=== PATIENT | male | born 1950 | race Hispanic/Latino ===

== ENCOUNTER 2016-05-28 10:38 | Outpatient (CLI) | payer MEDICARE, BC ==
[2016-05-28 11:55] LABS: #Basophils 0.1 thou/uL (0.0-0.2); #Eosinphils 0.2 thou/uL (0.0-0.7); #Lymphocytes 2.3 thou/uL (1.20-3.40); #Monocytes 0.8 thou/uL (0.11-0.59); #Neutrophils 3.1 thou/uL (1.40-6.50); %Basophils 1.1 % (0.0-1.0); %Monocytes 12.4 % (0.0-10.0); Hematocrit 45.8 % (42.0-52.0); Mean Platelet Volume 9.4 fL (7.4-10.4); White Blood Cell (WBC) Count 6.4 thou/uL (4.8-10.8)
[2016-05-28 12:20] LABS: ALT (SGPT) 151 U/L (0-55); AST (SGOT) 110 U/L (5-34); Alkaline Phosphatase 53 U/L (40-150); Anion Gap 17 mmol/L (10-20); BUN (Urea Nitrogen) 15 mg/dL (8.4-25.7); Calc. Creatinine Clearance 0 mL/min (70-130); Calcium 9.8 mg/dL (7.8-10.44); Carbon Dioxide 27 mmol/L (23-31); Chloride 102 mmol/L (98-107); Estimated GFR-MDRD 78; Globulin 2.5 g/dL (2.4-3.5); LDL Cholesterol, Calculated 95 mg/dL; Protein, Total 7.2 g/dL (5.8-8.1)
[2016-05-28 12:33] LABS: Hemoglobin A1c 6.6 % (4.0-6.0)
== END 2016-05-28 10:39 | disposition home or self-care (01) ==
LOC: HPCALD 10:38
PROVIDERS: ATTEND Family Medicine
DX: Z12.5 Encounter for screening for malignant neoplasm of prostate (principal); E11.9 Type 2 diabetes mellitus without complications; I10 Essential (primary) hypertension; E78.5 Hyperlipidemia, unspecified
CPT/HCPCS: 36415; 80053; 80061; 83036; 85025; G0103

== ENCOUNTER 2016-11-18 08:55 | Outpatient (CLI) | payer MEDICARE, OTHER ==
[2016-11-18 09:38] LABS: ALT (SGPT) 179 U/L (8-55); AST (SGOT) 96 U/L (5-34); Albumin 4.7 g/dL (3.4-4.8); Alkaline Phosphatase 51 U/L (40-150); Anion Gap 16 mmol/L (10-20); BUN (Urea Nitrogen) 20 mg/dL (8.4-25.7); Bilirubin, Total 0.6 mg/dL (0.2-1.2); Calc. Creatinine Clearance 0 mL/min (70-130); Calcium 9.8 mg/dL (7.8-10.44); Carbon Dioxide 27 mmol/L (23-31); Cardiac Risk 3.2 (Less than 4.5); Chloride 106 mmol/L (98-107); Cholesterol 168 mg/dl (< 200 Desired); Estimated GFR-MDRD 75; Globulin 2.7 g/dL (2.4-3.5); Glucose 162 mg/dL (80-115); HDL Cholesterol 53 mg/dL (>60 Neg Risk); LDL Cholesterol, Calculated 96 mg/dL; Potassium 4.2 mmol/L (3.5-5.1); Protein, Total 7.4 g/dL (5.8-8.1); Sodium 145 mmol/L (136-145); Triglycerides 96 mg/dL (Less than 150)
[2016-11-18 09:47] LABS: #Basophils 0.1 thou/uL (0.0-0.2); #Eosinphils 0.1 thou/uL (0.0-0.7); #Lymphocytes 2.3 thou/uL (1.20-3.40); #Monocytes 0.7 thou/uL (0.11-0.59); #Neutrophils 4.1 thou/uL (1.40-6.50); %Basophils 1.6 % (0.0-1.0); %Eosinophils 1.6 % (0.0-10.0); %Lymphocytes 31.9 % (21.0-51.0); %Monocytes 9.6 % (0.0-10.0); %Neutrophils 55.3 % (42.0-75.0); Hemoglobin 15.4 g/dL (14.0-18.0); Mean Corpuscular Hemoglobin 32.6 pg (27.0-31.0); Mean Corpuscular Volume 95.8 fl (80.0-94.0); Mean Platelet Volume 10.3 fL (7.4-10.4); Platelet Count 229 thou/uL (130-400); RBC Distribution Width 11.7 % (11.5-14.5); Red Blood Cell (RBC) Count 4.74 mill/uL (4.70-6.10); White Blood Cell (WBC) Count 7.3 thou/uL (4.8-10.8)
[2016-11-18 11:03] LABS: Hemoglobin A1c 6.7 % (4.0-6.0)
== END 2016-11-18 08:56 | disposition home or self-care (01) ==
LOC: HPCALD 08:55
PROVIDERS: ATTEND Family Medicine
DX: E78.5 Hyperlipidemia, unspecified (principal); E11.9 Type 2 diabetes mellitus without complications
CPT/HCPCS: 36415; 80053; 80061; 83036; 84443; 85025

== ENCOUNTER 2017-07-09 09:05 | Outpatient (CLI) | payer MEDICARE, OTHER ==
--- NOTE | 2017-07-10 08:43 | ULT ---
HEPATIC ULTRASOUND 07/09/17 Ultrasonography of the right upper quadrant was performed. The liver is large measuring 17.7 cm in ob lique sagittal length. Internally, no focal masses or dilated ducts could be seen. Hepatic portal brandon ous flow was towards the liver as expected. There was some sludge in the gallbladder, but no stones o r wall thickening was seen. The common bile duct was a normal 5 mm in caliber. The right kidney was 1 1.9 cm long and appeared normal. The pancreas was partially obscured by bowel gas and not seen well. The visible areas were unremarkable. IMPRESSION: 1. Mild hepatic enlargement. 2. Sludge in the gallbladder. POS: HOME
== END 2017-07-09 09:06 | disposition home or self-care (01) ==
LOC: BURULT 09:05
PROVIDERS: ATTEND Family Medicine
DX: R79.89 Other specified abnormal findings of blood chemistry (principal); K82.8 Other specified diseases of gallbladder; R16.0 Hepatomegaly, not elsewhere classified
CPT/HCPCS: 76705